=== PATIENT | male | born 1980 | race Hispanic/Latino ===

== ENCOUNTER 2021-08-26 09:17 | Day surgery (SDC) | payer OTHER ==
[2021-08-26 09:47] LABS: Absolute Lymphocytes (CBC) 2.1 K/uL (0.7-4.9); Basophils % 0.5 % (0-1.3); Hematocrit 43.3 % (39.6-49.0); Lymphocytes % 35.9 % (15.3-44.8); MPV 8.5 fL (7.6-11.3); RBC Red Blood Cell Count 4.74 M/uL (4.33-5.43)
[2021-08-26 10:01] LABS: BUN Blood Urea Nitrogen 10 mg/dL (7-18); Bicarbonate 27 mmol/L (21-32); Glucose Level 114 mg/dL (74-106); Potassium 3.9 mmol/L (3.5-5.1); Sodium Level 139 mmol/L (136-145)
[2021-08-26] MEDS ORDERED: Ringers Lactate 1,000 ML IV ONE (10:08)
[2021-08-26] MEDS ORDERED: ACETAMINOPHEN 500 MG TAB PO ONE (11:57)
[2021-08-26] MEDS ORDERED: CELECOXIB 100 MG CAPSULE PO ONE (11:57)
[2021-08-26] MEDS ORDERED: ACETAMINOPHEN 500 MG TAB ONE (12:18)
[2021-08-26] MEDS ORDERED: CELECOXIB 100 MG CAPSULE ONE (12:18)
[2021-08-26] MEDS ORDERED: LIDOCAINE 2% MPF 5 ML VIAL ONE (13:21)
[2021-08-26] MEDS ORDERED: propofoL 200 MG/20 ML VIAL IV ONE (13:21)
[2021-08-26] MEDS ORDERED: FENTANYL CITR 100 MCG/2 ML ONE ×2 (13:21→14:36)
[2021-08-26] MEDS ORDERED: CEFAZOLIN/NS 1gm 1 GM/50 ML BAG ONE (13:43)
[2021-08-26] MEDS ORDERED: KETOROLAC 30 MG/ML INJ ONE (13:58)
[2021-08-26] MEDS ORDERED: ONDANSETRON 4 MG/2 ML VIAL ONE (13:58)
[2021-08-26] MEDS ORDERED: dexAMETHasone 10 MG/ML VIAL ONE (13:58)
[2021-08-26] MEDS ORDERED: HYDROMORPHONE HCL 1 MG/ML INJ ONE (15:17)
[2021-08-26 16:01] VITALS: BP 119/70
[2021-08-26 16:35] VITALS: TEMP 97.8; O2SAT 98
--- NOTE | 2021-08-27 00:48 | OP ---
Date of Procedure: 08/26/2021 Surgeon: Dylan Vela MD Preoperative Diagnosis: Right knee pain with mechanical symptoms, probable meniscal tear or tears. Postoperative Diagnoses: 1.Very large amount of fat pad, which appears to impinge between the patella and the femur. 2.Some chondral loss of the patellofemoral joint. 3.Displaceable radial far posterior medial meniscal tear. Procedure: Right knee arthroscopy with debridement of medial meniscus tear and removal of medial syn ovial tissue/plica. Estimated Blood Loss: Less than 10 mL. Complications: There were no complications. Specimen: No pathology specimen sent. Indications For Operation: Mr. Alicea is a patient, who came to see me with complaints of knee joan n. He described intermittent pain as well as pain diffusely throughout the knee as well as intermitt ent swelling. An MRI was performed, which demonstrated a probable posterior medial meniscal tear. R isks, benefits, and alternatives of different methods of treating this have been discussed with them in the office for arthroscopic investigation and treatment and agrees to proceed. Description Of Procedure: The patient taken to the operating room, placed in supine position. Gener al anesthesia was obtained by staff. Following this, a well-padded tourniquet was placed on the supe rior right thigh; however, it was not used throughout the case. Right lower extremity was then prepp ed and draped in the usual sterile fashion for arthroscopy. Following this, a standard superior medi al arthroscopy portal was then placed with liberation approximately 20 mL of rather normal-appearing synovial fluid. This was followed by placement of inferolateral portal and arthroscope was then plac ed atraumatically. Once placed, the knee was then sequentially examined including suprapatellar pouc h, medial and lateral gutters, medial and lateral compartments as well as notch and patellofemoral jimmy int. Pertinent findings included synovial tissue as well as fairly abundant fat pad, which appears t o drape over the medial femoral condyle and also appears to probably impinge at the patellofemoral jimmy int. Also seen is a tear of the most posterior aspect of the medial meniscus. Using a needle for lo calization, an additional incision was then made and used as a working portal. A probe was then plac ed. It was found to have displaceable radial meniscal tear with a horizontal component. Combination of milady as well as biters were then used to debride back the medial meniscus to a firm, appropria tely-stable, well-contoured base. This was followed by probing of the lateral meniscus, which was fo und to be without tear. Some fat pad was removed to allow for better visualization and the fat pad a t the medial aspect was then debrided. After this, the knee was again examined in all the above area s and no further pathology seen, which was amenable to arthroscopic investigation or treatment. This was followed by removal of the arthroscopic instruments. The inferior portals were then stapled jaylen t. The medial portal was used for placement of Marcaine. This was then stapled. The patient was th en placed in a well-padded sterile dressing, awakened, and taken to recovery room in good condition. No complications. SE/MODL Voice ID: [id number] Report ID: [id number]
== END 2021-08-26 16:33 | disposition home or self-care (01) ==
LOC: OR 09:17
PROVIDERS: ATTEND Orthopaedic Surgery
PROC: 0SQC4ZZ Repair Right Knee Joint, Percutaneous Endoscopic Approach (ICD-10-PCS; principal; 2021-08-26 11:45)
DX: S83.241A Other tear of medial meniscus, current injury, right knee, initial encounter (principal); Z20.822 Contact with and (suspected) exposure to COVID-19
CPT/HCPCS: 85025; 80048; 36415; 29882; U0003; J2704; J3010 ×2; J1100; J1170; J0690; J7120; J2405